=== PATIENT | female | born 1970 | race Caucasian/White ===

== ENCOUNTER → 2016-12-08 | Outpatient (CLI) | payer OTHER | LOC: RAD 10:08 | DX: R22.41 Localized swelling, mass and lump, right lower limb (principal) | CPT/HCPCS: 73502; 73552 ==

== ENCOUNTER → 2017-01-03 | Outpatient (CLI) | payer OTHER | LOC: EMI 10:00 | DX: R22.1 Localized swelling, mass and lump, neck (principal) | CPT/HCPCS: 73718 ==

== ENCOUNTER → 2017-02-02 | Outpatient (CLI) | payer OTHER | LOC: EMI 09:00 | DX: R22.41 Localized swelling, mass and lump, right lower limb (principal); R93.7 Abnormal findings on diagnostic imaging of other parts of musculoskeletal system | CPT/HCPCS: 73720; A9577; J7050 ==

== ENCOUNTER 2021-06-23 09:24 | Emergency (ER) | payer OTHER ==
[~2021-06-23] VITALS: Ht 137.2 cm; Wt 72.6 kg
[~2021-06-23 09:24] MED LIST: ACTOS45 MG PO; ALLER-EASE180 MG PO; BUTALBITAL-ASA1 EACH PO; CELEXA20 MG PO; COZAAR100 MG PO; GLUCOPHAGE1000 MG PO; JANUVIA100 MG PO; MAGOX 400400 MG PO; NEURONTIN 300300 MG PO; NORVASC 5 MG TAB5 MG PO; PROBIOTIC1 EACH PO; PROTONIX40 MG PO; SINGULAIR10 MG PO; ZANAFLEX4 MG PO; ZANTAC 150 MG150 MG PO
== END 2021-06-23 12:52 | disposition home or self-care (01) ==
LOC: ER1 09:24
DX: U07.1 COVID-19 (principal); Z23 Encounter for immunization; E11.9 Type 2 diabetes mellitus without complications; I10 Essential (primary) hypertension; J45.909 Unspecified asthma, uncomplicated; Z90.49 Acquired absence of other specified parts of digestive tract; Z88.5 Allergy status to narcotic agent
CPT/HCPCS: 71045; 99283; M0243

== ENCOUNTER 2021-07-29 22:23 | Emergency (ER) | payer OTHER ==
[2021-07-29] MEDS ORDERED: BENZONATATE200 MG PO (23:55)
[2021-07-29] MEDS ORDERED: ONDANSETRON ODT4 MG SL (23:55)
== END 2021-07-30 00:08 | disposition home or self-care (01) ==
LOC: ER1 22:23
DX: J18.9 Pneumonia, unspecified organism (principal); E11.9 Type 2 diabetes mellitus without complications; I10 Essential (primary) hypertension; Z90.49 Acquired absence of other specified parts of digestive tract; Z88.5 Allergy status to narcotic agent; Z86.16 Personal history of COVID-19
CPT/HCPCS: 99283